=== PATIENT | female | born 1980 | race Two or more races ===

== ENCOUNTER 2024-08-31 15:42 | Emergency (ER) | payer OTHER ==
[~2024-08-31] VITALS: Ht 160 cm; Wt 114.2 kg
[2024-08-31 16:17] VITALS: BP 142/8; PULSE 105; RESP 18; TEMP 98.4; O2SAT 96
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
[2024-08-31] MEDS: KETOROLAC TROMETH 60MG/2ML VIAL IM ONE (16:33)
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
[2024-08-31] MEDS ORDERED: IBUP-1456 PO (18:05)
[2024-08-31] MEDS ORDERED: CYCL-839 PO (18:05)
[2024-08-31] MEDS ORDERED: TRAM-626 PO (18:19)
== END 2024-08-31 18:21 | disposition home or self-care (01) ==
LOC: ER 15:42
DX: S16.1XXA Strain of muscle, fascia and tendon at neck level, initial encounter (principal); S20.219A Contusion of unspecified front wall of thorax, initial encounter; S30.1XXA Contusion of abdominal wall, initial encounter; Z79.1 Long term (current) use of non-steroidal anti-inflammatories (NSAID); Z88.5 Allergy status to narcotic agent; V43.52XA Car driver injured in collision with other type car in traffic accident, initial encounter; Y93.89 Activity, other specified; Y92.89 Other specified places as the place of occurrence of the external cause; Y99.8 Other external cause status
CPT/HCPCS: 71250; 72125; 74176; 96372; 99285; J1885